=== PATIENT | male | born 1980 | race Caucasian/White ===

== ENCOUNTER 2023-04-29 22:39 | Emergency (ER) | payer BC ==
[~2023-04-29] VITALS: Ht 177.8 cm; Wt 79.4 kg
[2023-04-29] MEDS ORDERED: KETOROLAC TROMETHAMINE 30 MG INJ ONE (23:12)
[2023-04-29] MEDS: KETOROLAC TROMETHAMINE 30 MG INJ IM ONE (23:20)
[2023-04-30] MEDS ORDERED: IBUP-1957 PO (07:24)
[2023-04-30 07:31] VITALS: BP 138/78; TEMP 98.2; O2SAT 98
== END 2023-04-30 07:32 | disposition home or self-care (01) ==
LOC: ER 22:42
DX: S16.1XXA Strain of muscle, fascia and tendon at neck level, initial encounter (principal); Z79.899 Other long term (current) drug therapy; V49.3XXA Car occupant (driver) (passenger) injured in unspecified nontraffic accident, initial encounter; Y93.89 Activity, other specified; Y92.89 Other specified places as the place of occurrence of the external cause; Y99.8 Other external cause status
CPT/HCPCS: 99285; 70450; 72125; 72128; 72131; 96372; J1885; A4606; A4663